=== PATIENT | male | born 1995 | race Caucasian/White ===

== ENCOUNTER 2022-06-09 11:37 | Emergency (ER) | payer OTHER, SELFPAY ==
[2022-06-09 11:52] VITALS: BP 129/65; PULSE 72; RESP 20; TEMP 36.8; O2SAT 99
--- NOTE | 2022-06-09 12:05 | ED.NAVMDI ---
HPI - Nausea/Vomiting/Diarrhea General Chief complaint: Nausea/Vomiting/Diarrhea Stated complaint: Diarrhea,Vomiting,Nausea,Headache Time Seen by Provider: 06/09/22 11:55 Source: patient and family () Mode of arrival: ambulatory Limitations: no limitations History of Present Illness HPI Narrative: Patient presents today complaining nausea, vomiting, diarrhea since 10:00 a.m. last night new he has had 2 episodes of vomiting and 4 episodes of diarrhea since that time. Last episode of diarrhea was 1.5 hours prior to arrival. Last episode of vomiting was this morning after waking up. Denies abdominal pain, but does report stomach upset. He also reports a headache. He has been taking Pepto-Bismol and ibuprofen with mild relief. States he has not been able to keep down much fluids due to the vomiting. Denies any additional URI symptoms or fever. Denies any blood or mucus in the stool. Denies any known suspicious food intake, but did have fast food last night. had same fast food and is not ill.. Denies any recent travel. Denies any recent illness. Related Data Allergies Allergy/AdvReac Type Severity Reaction Status Date / Time No Known Allergies Allergy Verified 06/09/22 11:57 Review of Systems Review of Systems: CONSTITUTIONAL: Denies body aches, fever, chills, or sweats. EYES: Denies visual changes, redness, or discharge. ENT: Denies rhinorrhea, congestion, sore throat, or otalgia. CARDIOVASCULAR: Denies chest pain, palpitations, or edema. RESPIRATORY: Denies cough or dyspnea. GASTROINTESTINAL: Denies abdominal pain.+ nausea, vomiting, diarrhea GENITOURINARY: Denies dysuria or hematuria. SKIN: Denies rash, itching, or wounds. MUSCULOSKELETAL: Denies back pain, joint pain, or myalgia. NEUROLOGIC: Denies numbness, tingling, or weakness.+ headache PSYCH: Denies depression or anxiety. PMFSH Comments At time of signature, I have reviewed and agree with nursing past medical, surgical, social and family history unless otherwise noted. Please see nursing chart for further information. There is no relevant family history pertinent to the presenting complaint Exam Narrative: GENERAL: Well-appearing, well-nourished, and in no acute distress. HEAD: Normocephalic, atraumatic. EYES: EOMI. No redness or drainage. Conjunctivae normal. ENT: Mucous membranes pink and moist. Nares clear. No rhinorrhea. Throat normal. Uvula midline. NECK: Normal AROM. Supple. No lymphadenopathy. CHEST: No respiratory distress. Clear to auscultation. HEART: Regular rate and rhythm. No murmur appreciated. Normal peripheral pulses. ABDOMEN: Soft, nontender, nondistended, normal active bowel sounds. MUSCULOSKELETAL: No bony tenderness. EXTREMITIES: Normal range of motion. No edema. SKIN: Warm, dry, no rash. Capillary refill normal. Normal skin turgor. NEURO: No focal deficits. Alert and oriented x3. Gait steady. PSYCH: Normal affect. No signs of depression or anxiety. Course Course Level of Care: Express Care Visit Vital Signs Vital signs: Vital Signs Temperature 98.2 F 06/09/22 11:52 Pulse Rate 72 06/09/22 11:52 Respiratory Rate 20 06/09/22 11:52 Blood Pressure 129/65 06/09/22 11:52 Pulse Oximetry 99 06/09/22 11:52 Oxygen Delivery Room Air 06/09/22 11:52 Temperature 98.2 F 06/09/22 11:52 Pulse Rate 72 06/09/22 11:52 Respiratory Rate 20 06/09/22 11:52 Blood Pressure 129/65 06/09/22 11:52 Pulse Oximetry 99 06/09/22 11:52 Oxygen Delivery Room Air 06/09/22 11:52 Reviewed. Pt has been instructed to follow up with his PCP regarding his elevated blood pressure today. MDM - Nausea/Vomiting/Diarrhea MDM Narrative Medical decision making narrative: Symptoms likely viral. Will treat with Zofran for nausea and vomiting. Guidance given for oral rehydration. Differential Diagnosis Differential diagnosis: Likely food poisoning, gastroenteritis and dehydration Critical Care Time Critical C
== END 2022-06-09 12:15 | disposition home or self-care (01) ==
PROVIDERS: Emergency Provider Nurse Practitioner
DX: R11.2 Nausea with vomiting, unspecified (principal); R19.7 Diarrhea, unspecified
CPT/HCPCS: 99213; G0463